=== PATIENT | female | born 1980 | race African-American/Black ===

== ENCOUNTER 2019-01-14 00:26 | Emergency (ER) | payer OTHER ==
[~2019-01-14] VITALS: Ht 157.5 cm; Wt 77.1 kg
[2019-01-14 00:59] LABS: ABSOLUTE NEUTROPHILS 4.8 thou/uL (1.4-8.2); BASOPHILS 1.1 % (0.0-2.0); EOSINOPHILS 1.4 % (0.0-3.0); HEMATOCRIT 30.8 % (37.0-47.0); HEMOGLOBIN 9.6 gm/dL (12.0-15.0); LYMPHOCYTES 34.3 % (24.0-44.0); MCH 24.2 pg (26.0-34.0); MCHC 31.2 g/dL (28.0-37.0); MCV 77.6 fL (80.0-100.0); MONOCYTES 8.9 % (1.0-8.0); PLATELET COUNT 516 thou/uL (150-400); POLYS 54.3 % (36.0-66.0); RBC 3.97 mil/uL (4.20-5.00); RDW 18.6 % (10.5-14.5); WBC 8.8 thou/uL (4.0-11.0)
[2019-01-14 01:02] LABS: ANION GAP 8 mmol/L (7-16); BUN 12 mg/dL (7-18); CALCIUM 9.3 mg/dL (8.5-10.1); CHLORIDE 104 mmol/L (98-107); CO2 29 mmol/L (21-32); CREATININE 0.9 mg/dL (0.6-1.0); GLUCOSE 95 mg/dL (74-106); POTASSIUM 3.8 mmol/L (3.5-5.1); SODIUM 141 mmol/L (136-145)
[2019-01-14 01:12] LABS: ALBUMIN 3.4 g/dL (3.4-5.0); SGOT 23 U/L (15-37); SGPT 20 U/L (30-65); TOTAL BILIRUBIN 0.2 mg/dL (<0.1-1.0); TOTAL PROTEIN 7.9 g/dL (6.4-8.2); TROPONIN-I <0.06 ng/mL (<0.06)
[2019-01-14 01:51] VITALS: BP 108/69
--- NOTE | 2019-01-14 17:09 | EKG ---
[place] [address] [facility] [place] [place] [address] ELECTROCARDIOGRAM REPORT Name: KIERSTEN BILLY Room #: DEP JIHAN Wiggins#: [id number] Admission: 01/14/19 Attend Phys: Discharge: 01/14/19 Date of : 84 Report #: [id number] THIS REPORT FOR: //name// [facility] ED Test Date: 2019-01-14 Test Time: 00:37:50 Pat Name: KIERSTEN BILLY Department: Room: Gender: F Hone Operator: SEA : 1980 Requested By: Reji Bolden Order Number: [id number] MD: Cb Haney Measurements Intervals [place] Rate: 84 P: 48 LA: 112 QRS: 31 QRSD: 77 T: 45 QT: 362 QTc: 428 Interpretive Statements Sinus rhythm Normal tracing No previous ECG available for comparison Electronically Signed On 01-14-2019 17:09:04 ENGRAVER PICTURE by Cb Haney [email or web address] <ELECTRONICALLY SIGNED> By: Cb Haney MD, [facility] 01/14/19 1709 0037 0037 Cb Haney MD, FACC /EPI
== END 2019-01-14 01:56 | disposition home or self-care (01) ==
LOC: ER 00:26
PROVIDERS: Emergency Medicine
DX: R07.89 Other chest pain (principal); Z87.891 Personal history of nicotine dependence